=== PATIENT | male | born 1980 | race Caucasian/White ===

== ENCOUNTER → 2021-03-27 12:12 | Outpatient (BNVA) | payer SELFPAY | PROVIDERS: PCP Family Medicine; Visit Provider Nurse Practitioner | DX: R50.9 Fever, unspecified (principal); B34.9 Viral infection, unspecified | CPT/HCPCS: 87400 ==

== ENCOUNTER → 2021-03-29 12:47 | Outpatient (BNVA) | payer OTHER, SELFPAY | PROVIDERS: PCP Family Medicine; Visit Provider Nurse Practitioner | DX: B34.9 Viral infection, unspecified (principal); Z20.822 Contact with and (suspected) exposure to COVID-19 | CPT/HCPCS: 87635 ==

== ENCOUNTER 2021-04-01 12:12 | Outpatient (CLI) | payer OTHER, SELFPAY ==
[2021-04-01 12:23] VITALS: BP 107/69; PULSE 74; RESP 20; TEMP 36.4; O2SAT 98; BMI 25.8
[2021-04-01 12:53] VITALS: BP 97/55; PULSE 59; RESP 16; TEMP 36.4; O2SAT 97
[2021-04-01 13:53] VITALS: BP 100/63; PULSE 60; RESP 17; TEMP 36.7; O2SAT 97
== END 2021-04-01 12:13 | disposition home or self-care (01) ==
LOC: OPS 12:18
PROVIDERS: Visit Provider Nurse Practitioner Family
DX: U07.1 COVID-19 (principal)
CPT/HCPCS: 96365